=== PATIENT | male | born 1940 | race African-American/Black ===

== ENCOUNTER 2016-07-26 15:54 | Emergency (ER) | payer MEDICARE, MEDICAID ==
--- NOTE | 2016-07-26 16:30 | ED Physician Chart ---
Chief Complaint/HPI - Patient Information Date Seen:: 07/26/16 Time Seen:: 16:15 Chief Complaint:: laceration right forearm History of Present Illness:: location: right forearm quality: superficial laceration severity: mild duration: less than 3 hours context: pt was outside working on a [employer] wire fence when he accidentally got cut while moving his right upper limb over the fence. no fall, no other trauma. small wound to right dorsal forearm. some mild bleeding, some pain. no paralysis or paresthesia. came to ER for wound care and tetanus. has not had tetanus immunization in many years. mod factors: none assoc s/s: none hx from pt. Allergies:: Allergies Allergy/AdvReac Type Severity Reaction Status Date / Time No Known Allergies Allergy Verified 07/26/16 16:08 Vitals:: Vital Signs - 8 hr 07/26/16 16:00 Temp 97.9 F HR 84 RR 20 BP 124/78 Historian:: Patient Review:: Nurse's Note Reviewed Review of Systems - Review of Systems General/Constitutional: No fever, No chills, No weight loss, No weakness, No diaphoresis, No edema, No loss of appetite Skin: No skin lesions, No rash, No bruising Head: No headache, No light-headedness Eyes: No loss of vision, No pain, No diplopia ENT: No earache, No nasal drainage, No sore throat, No tinnitus Neck: No neck pain, No swelling, No thyromegaly, No stiffness, No mass noted Cardio Vascular: No chest pain, No palpitations, No PND, No orthopnea, No edema Pulmonary: No SOB, No cough, No sputum, No wheezing GI: No nausea, No vomiting, No diarrhea, No pain, No melena, No hematochezia, No constipation, No hematemesis G/U: No dysuria, No frequency, No hematuria Musculoskeletal: No bone or joint pain, No back pain, No muscle pain Endocrine: No polyuria, No polydipsia Psychiatric: No prior psych history, No depression, No anxiety, No suicidal ideation Hematopoietic: No bruising, No lymphadenopathy Allergic/Immuno: No urticaria, No angioedema Neurological: No syncope, No focal symptoms, No weakness, No paresthesia, No headache, No seizure, No dizziness, No confusion, No vertigo Past Medical History - Past Medical History Past Medical History: HTN Family History: HTN Social History: Non Smoker, No Alcohol, No Drug Use, Surgical History: None Psychiatricy History: None Medication: Reviewed Family Medical History - Family Member Father History Unknown: Yes Ethnicity: Non- Living Status: Still Living Physical Exam - Physical Examination General/Constitutional: Awake, Well-developed, well-nourished, Alert, No distress, GCS 15, Non-toxic appearing, Ambulatory Head: Atraumatic Eyes: Lids, conjuctiva normal, PERRL, EOMI Skin: Nl inspection, No rash, No skin lesions, No ecchymosis, Well hydrated, No lymphadenopathy ENMT: External ears, nose nl, Nasal exam nl, Lips, teeth, gums nl Neck: Nontender, No nuchal rigidity Respiratory: Nl effort/Exclusion, Clear to Auscultation, No Wheeze/Rhonchi/Rales Cardio Vascular: RRR, No murmur, gallop, rubs, NL S1 S2 Extremities: No tenderness or effusion, Full ROM, normal strength in all extremities (right upper limb, superficial laceration 2 cm dorsum right forearm. wound is very superficial, does not penetrate beyond dermis. wound edges cannot be pulled apart except for epidermis. ), No edema, Normal digits & nails (normal flexion and extension of wrist at forearm. normal sensation throughout, normal radial pulse. ) Neuro/Psych: Alert/oriented, Normal sensory exam, Normal motor strength, Judgement/insight normal, Mood normal, Normal gait, No focal deficits Misc: normal gait, Normal back, No paraspinal tenderness Assessment - Assessment General Assessment: pt stable while in ER. procedure note wound is cleansed with sterile solution skin glue applied steri strips applied post procedure wound is clean and dry pt tolerated procedure well TDAP administered in ER. ED Septic Shock - . Is Septic Shock (SBP<90, OR Lactate>4 mmol\L) present?: No - <6hrs of presentation: Vital Signs: Vital Signs - 8 hr 07/26/16 16:00 Temp 97.9 F HR 84 RR 20 BP 124/78 Reassessment (Disposition) - Reassessment Reassessment:: ER course: pt stable during ER. MDM: stable patient overall quite healthy. only mild HTN managed with one med. wound is repaired with skin glue and steri strips. pt tolerated procedure well. wound is clean, not a dirty wound. will recommend close follow up. no antibiotics to be prescribed at this time, pt is aware and agrees to this course of action. Reassessment Condition:: Improved - Diagnosis Diagnosis:: 2 cm superficial laceration right forearm, repaired with skin glue - Aftercare/Follow up Instructions Aftercare/Follow-Up Instructions:: Refer to Discharge Instructions Notes:: clinic tomorrow for recheck - Patient Disposition Discharge/Transfer:: Home Condition at Disposition:: Stable, Improved
== END 2016-07-26 17:04 | disposition home or self-care (01) ==
LOC: ER 15:54
DX: S51.811A Laceration without foreign body of right forearm, initial encounter (principal); I10 Essential (primary) hypertension; W45.8XXA Other foreign body or object entering through skin, initial encounter; Y93.89 Activity, other specified; Y92.89 Other specified places as the place of occurrence of the external cause; Y99.8 Other external cause status
CPT/HCPCS: Z7502